=== PATIENT | male | born 1975 | race Hispanic/Latino ===

== ENCOUNTER 2016-12-22 00:40 | Emergency (ER) | payer BC ==
[2016-12-22 00:46] VITALS: O2SAT 96
--- NOTE | 2016-12-22 01:35 | C.PDOC ---
History Of Present Illness The patient is a 41yo male, with history of psychological disorders, presents to the ED today for medication refills for his Celexa and Vyvanse. He reports he ran out of his medications 3 days ago and has a follow up appointment in January.. He denies any suicidal or homicidal ideation, hallucinations and at present, offers no medical complaints. Time Seen by Provider: 12/22/16 01:08 Chief Complaint (Nursing): Med Refill History Per: Patient History/Exam Limitations: no limitations Onset/Duration Of Symptoms: Days Current Symptoms Are (Timing): Still Present Additional History Per: Patient Past Medical History Reviewed: Historical Data, Nursing Documentation, Vital Signs Vital Signs: Last Vital Signs Temp 98.5 F 12/22/16 00:42 Pulse 94 H 12/22/16 00:42 Resp 20 12/22/16 00:42 BP 146/90 12/22/16 00:42 Pulse Ox 96 12/22/16 01:43 - Medical History PMH: Bipolar Disorder Surgical History: No Surg Hx Family History: States: No Known Family Hx - Social History Hx Alcohol Use: Yes Hx Substance Use: No Review Of Systems Psych: Positive for: Other (med refill). Negative for: Suicidal ideation Physical Exam - Physical Exam Appears: Non-toxic, No Acute Distress Skin: Normal Color, Warm, Dry Head: Atraumatic, Normacephalic Eye(s): bilateral: Normal Inspection, EOMI Neck: Supple Cardiovascular: Rhythm Regular Respiratory: Normal Breath Sounds Extremity: Normal ROM, No Deformity, No Swelling Neurological/Psych: Oriented x3, Normal Speech, Normal Cognition Gait: Steady ED Course And Treatment O2 Sat by Pulse Oximetry: 96 (RA) Pulse Ox Interpretation: Normal Progress Note: Pt was interviewed by Arlene- crisis counselor who discussed the case with Dr Serrano- danni furnace combustion analyst and advised 20 day supply of celexa and for pt to keep his appt with his psychiatrist. Pt is comfortable keeping his appt as he does not want to be seen in [facility] for insurance purposes. pt remains stable and cooperative in ED and will d/c home with a refill of celexa. Medical Decision Making Medical Decision Making: Time: 49 Impression: 41y/o male presents for medication refill Plan: -- Crisis evaluation -- Reassessment Disposition Counseled Patient/Family Regarding: Diagnosis, Need For Followup, Rx Given - Disposition Referrals: Your psychiatrist, Private office [Other] Disposition: HOME/ ROUTINE Disposition Time: 03:26 Condition: STABLE Additional Instructions: Please keep your appointment with your psychiatrist as scheduled Return to ER if worse Prescriptions: Citalopram Hydrobromide [Celexa] 20 mg PO HS #20 tablet Forms: [employer] ([employer]), General Discharge Instructions - Clinical Impression Clinical Impression: Review of medication - PA / [employer] / Resident Statement MD/DO has reviewed & agrees with the documentation as recorded. - Scribe Statement The provider has reviewed the documentation as recorded by the Scribe Lupe Wheeler All medical record entries made by the Yonas were at my direction and personally dictated by me. I have reviewed the chart and agree that the record accurately reflects my personal performance of the history, physical exam, medical decision making, and the department course for this patient. I have also personally directed, reviewed, and agree with the discharge instructions and disposition.
[2016-12-22 03:44] VITALS: BP 133/70; PULSE 68; RESP 17; TEMP 98
== END 2016-12-22 03:45 | disposition home or self-care (01) ==
LOC: C.ER 00:40
DX: Z51.81 Encounter for therapeutic drug level monitoring (principal); Z79.899 Other long term (current) drug therapy